=== PATIENT | female | born 1940 | race Caucasian/White ===

== ENCOUNTER 2017-05-07 07:46 | Emergency (ER) | payer MEDICARE ==
[~2017-05-07] VITALS: Ht 170.2 cm; Wt 63.5 kg
--- NOTE | 2017-05-07 08:09 | Emergency Room Report ---
History of Present Illness Time Seen by MD Foster Presenting Problem in Triage Pt arrived:Wheelchair Presenting Problem:PATIENT REPORTS SHE WAS ROLLING OVER TO GET UP AND FELL OUT OF THE BED. SMALL LAC NOTED TO LEFT FA. PATIENT REPORTS SHE'S ON COUMADIN. 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 N Clinical Suspician of Infection? N Mental Status: 1 - Regular (Normal Baseline) Sepsis Risk:Low Sepsis Risk Have you (or family members/close friends) recently traveled outside the [place]? N If Yes, where/when: Have you had exposure to infectious disease within the past month? TB? Other? Specify: Source patient, RN notes reviewed Exam Limitations no limitations Comment Pt was rolling over to get out of bed and instead, Fell out of bed. No LOC but small laceration on left forearm. She in on coumadin. n She also has about a 3 cm cut on the tip of her right middle fingertip Cardiac Chest Pain Chest pain indicative of cardiac No Timing/Duration this morning ALLERGIES Coded Allergies: No Known Allergies (05/07/17) Home Medications Reported Medications WARFARIN SOD (Warfarin 1MG) 1 MG PO SEE COMMENT WARFARIN SOD (Warfarin 2.5MG) 2 MG PO SEE COMMENTS Phenytoin (Dilantin) 50 MG PO ZANA FLOOD,S,S #30 30 Days PHENYTOIN SODIUM EXTENDED (Dilantin) 100 MG PO BID #90 30 Days Atorvastatin Calcium 40 MG PO QHS #30 30 Days History Medical History General CAD? No Angina: No MD: No Hypertension? No Hyperlipidemia? Yes CHF? No DVT? No PE? No COPD? No Asthma? No Anemia? No GERD? No Gastric ulcers? No GI Bleed? No Hernia? No Thyroid Problems? No Hypothyroidism? No CVA? Yes Seizures? Yes Diabetes? No Renal Insuffiency? No End Stage Renal Disease? No UTI? Yes Stones? No BPH? No GB Disease: No Nephritic Syndrome? No Asplenia? No Hepatitis? No Sickle Cell Disease? No Arthritis? Yes Migraines? No Cataracts? No Glaucoma? No MRSA? No HIV? No TB? No Anxiety? No Depression? No Cancer? No More? Yes Additional hx: ANEURYSM Immunization Hx DT/Tetanus 1-4 YRS Flu THIS YR Pneumonia 1-4 YRS Surgical Hx Previous Surgery?Y ANEURYSM PARTIAL HYSTERECTOMY RIGHT HIP C SECTION Family History Family Hx Diabetes No CAD Yes Hypertension Yes Hyperlipidemia No Cancer Yes TB No Social History Smoking Hx Smoker: Current Every Day Smoker Tobacco: Yes Type Cigarettes Packs/day 1 1/2 - 2 Packs Alcohol Alcohol: No Review of Systems All Other Systems Reviewed and Negative Constitutional see HPI Skin see HPI Physical Exam Vital Signs Vital Signs Date Time Temp Pulse Resp B/P Pulse O2 O2 Flow FiO2 Ox Delivery Rate 05/07 0751 97.7 87 20 178/78 96 General Appearance normal appearance, WD/WN, no apparent distress Respiratory Status No: respiratory distress. 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 No Results/Orders Current Medication Orders Sig/Shanelle Start time Last Medication Dose Route Stop Time Status Admin Diphtheria/Pertussis/ 0.5 ML ONCE ONE 05/07 845 DC Tetanus Vacc IM 05/07 846 Multi-Ingredient 0 .STK-MED ONE 05/07 845 DC Ointment TP Diphtheria/Pertussis/ 0 .STK-MED ONE 05/07 0818 DC Tetanus Vacc IM Lidocaine HCl 10 ML ONCE ONE 05/07 815 DC 05/07 SC 05/07 08 0832 Lidocaine HCl 0 .STK-MED ONE 05/07 08 DC .ROUTE Orders Procedure Date/time Status PROCEDURE TRAY SET UP 05/07 810 Active PREPARE CONSENT 05/07 810 Active Procedures Laceration/Wound Repair Laceration/Wound Repair Risks/benefits discussed with pt/guardian? Yes Tetanus status not up to date, given Tdap in the ED Wound Location finger(s), forearm Wound Length (cm) 5 Wound's Depth, Shape sucutaneous tissue Wound Explored clean Risk of retained FB explained to pt/guardian? No Irrigated w/ Saline (ccs) 25 Wound Prep Hibiclens, Saline Anesthesia 1% Lidocaine Volume Anesthetic (ccs) 5 Wound Debrided none Wound Repaired With sutures Suture Size/Type 5:0, Ethilon Layer Closure No Total Number Sutures 14 Sterile Dressing Applied Yes Splint Applied No Departure Departure Time of Disposition 844 Disposition DC Home or Self Care(routine) Clinical Impression Primary Impression: Finger laceration Qualifiers: Encounter type: initial encounter Finger: middle finger Damage to nail status: without damage Foreign body presence: without foreign body Laterality: right Qualified Code: S61.212A - Laceration without foreign body of right middle finger without damage to nail, initial encounter Secondary Impressions: Forearm laceration Qualifiers: Encounter type: initial encounter Laterality: left Qualified Code: S51.812A - Laceration without foreign body of left forearm, initial encounter Condition STABLE Referrals [facility] (Family): 1 Week-Call Office Patient Instructions DI for Laceration Repair, How to Care for a Laceration After Repair, Laceration Repair Additional Instructions Keep stitches dry for 2 days. Change dressing daily and use bactroban ointment to redress. Have stitches removed in 9 to 10 days Discharge Counseling Counseled pt/family regarding diagnosis, test results, medications/RX, home care, follow up needs Prescriptions Current Visit Scripts MUPIROCIN 2% (Bactroban Oint) 0 GM TP DAILY #1 TUBE ED Critical Care Critical Care No If Critical Care minutes are documented, the time involved in the performance of seperately reportable procedures was not counted toward critical care time documented. I directly delivered medical care to this critically ill and/or injured patient. Timely evaluation and treatment was necessary to address the significant organ system(s) dysfunction present in this patient. at 0848
[2017-05-07 09:02] VITALS: BP 170/72
--- OUTSIDE RECORDS SUMMARY | 2017-05-17 21:08 | External Medical Summary Rpt ---
Author Author , HEATHER ROMERO Address Unknown Phone International Immunization Name Date Rout CVX Reac Dose Comm Prov Is Faci e tion ent ider Refu lity Give sed n Infl 11-0 135 999 Hist D203 No D203 uenz 8-20 oric 45 45 a, 16 al High Info rmat Dose ion - Sour ce Unsp ecif ied
--- OUTSIDE RECORDS SUMMARY | 2017-05-17 21:08 | External Medical Summary Rpt ---
Author Author , HEATHER ROMERO Address Unknown Phone [email or web address] Care Team Providers Care Software Manager Name Role Phone [facility] Unavailable Unavailable CARE, [facility] Unavailable Unavailable CARE, [facility] Unavailable Unavailable CARE OF, [facility] OF Purpose Continuity of Care Document - 03-09-2017 through 2016 Problems Code Diagnosis DOS Provider Status [id number] HEMIPLEGIA 05-01-2017 [facility] INFARCT AFF RT DOM SIDE Procedures Procedure DOS Code Location Performer Comment HOME CARE S[facility]LD[facility] ELD[facility] CARE CARE CARE CLIENT PER 15 MIN HOME CARE [facility] 7 [facility] CARE CARE CLIENT PER 15 MIN HOME CARE [facility] 7 [facility] ELD[facility] CARE CARE CARE CLIENT PER 15 MIN HOME CARE S[facility] 7 [facility] ELD[facility] CARE CARE CARE CLIENT PER 15 MIN HOME CARE S[facility] 7 [facility] ELD[facility] CARE CARE CARE CLIENT PER 15 MIN HOME CARE S[facility] 7 [facility] ELD[facility] CARE CARE CARE CLIENT PER 15 MIN HOME CARE S[facility] 7 [facility] ELD[facility] CARE CARE CARE CLIENT PER 15 MIN HOME CARE S[facility] 7 [facility]LD[facility] CARE CARE CARE CLIENT PER 15 MIN HOME [facility]ARE S[facility] 7 [facility]LD[facility] CARE CARE CARE CLIENT PER 15 MIN HOME CARE S[facility] 7 [facility]LD[facility] CARE CARE CARE CLIENT PER 15 MIN HOME [facility]ARE S[facility] 7 [facility]LD[facility] CARE CARE CARE CLIENT PER 15 MIN HOME [facility]ARE S[facility] 7 [facility]LD[facility] CARE CARE CARE CLIENT PER 15 MIN HOME CARE S[facility] 7 [facility] HOME ELDER ELDER CARE CARE CARE CLIENT PER 15 MIN HOME CARE S[facility] 7 [facility] HOME ELDER ELDER CARE CARE CARE CLIENT PER 15 MIN HOME CARE S[facility] 7 [facility] HOME ELDER ELDER CARE CARE CARE CLIENT PER 15 MIN HOME CARE S[facility] 7 [facility] HOME ELDER ELDER CARE CARE CARE CLIENT PER 15 MIN HOME CARE S[facility] 7 [facility] HOME ELDER ELDER CARE CARE CARE CLIENT PER 15 MIN HOME CARE S[facility] 7 [facility] HOME ELDER ELDER CARE CARE CARE CLIENT PER 15 MIN HOME CARE S[facility] 7 [facility] HOME ELDER ELDER CARE CARE CARE CLIENT PER 15 MIN HOME CARE S[facility] 7 [facility] HOME ELDER ELDER CARE CARE CARE CLIENT PER 15 MIN HOME CARE S[facility] 7 [facility] HOME ELDER ELDER CARE CARE CARE CLIENT PER 15 MIN HOME CARE S[facility] 7 [facility] HOME ELDER ELDER CARE CARE CARE CLIENT PER 15 MIN HOME CARE S[facility] 7 [facility] HOME ELDER ELDER CARE CARE CARE CLIENT PER 15 MIN HOME CARE S[facility] 7 [facility] HOME ELDER ELDER CARE CARE CARE CLIENT PER 15 MIN HOME CARE S[facility] 7 [facility] HOME ELDER ELDER CARE CARE CARE CLIENT PER 15 MIN HOME CARE S5[facility] 7 [facility] HOME ELDER ELDER CARE CARE CARE CLIENT PER 15 MIN HOME CARE S5108 [facility] 7 [facility] HOME ELDER ELDER CARE CARE CARE CLIENT PER 15 MIN HOME CARE S5[facility] 7 [facility] HOME ELDER ELDER CARE CARE CARE CLIENT PER 15 MIN HOME CARE S5[facility] 7 [facility] HOME ELDER ELDER CARE CARE CARE CLIENT PER 15 MIN HOME CARE S5[facility] 7 [facility] HOME ELDER ELDER CARE CARE CARE CLIENT PER 15 MIN HOME CARE S5108 [facility] 7 [facility] HOME ELDER ELDER CARE CARE CARE CLIENT PER 15 MIN HOME CARE S5108 [facility] 7 [facility] HOME ELDER ELDER CARE CARE CARE CLIENT PER 15 MIN HOME CARE S5108 [facility] 7 [facility]LD[facility] ELDER CARE CARE CARE CLIENT PER 15 MIN HOME CARE S5[facility] 7 [facility]LD[facility] ELDER CARE CARE CARE CLIENT PER 15 MIN HOME CARE S5[facility] 7 [facility] HOME ELDER ELDER CARE CARE CARE CLIENT PER 15 MIN HOME CARE S5108 [facility] 7 [facility]LD[facility] ELDER CARE CARE CARE CLIENT PER 15 MIN HOME [facility]ARE S5[facility] 7 [facility]LD[facility] ELDER CARE CARE CARE CLIENT PER 15 MIN HOME [facility]ARE S5[facility] 7 [facility]LD[facility] ELDER CARE CARE CARE CLIENT PER 15 MIN HOME CARE S5[facility] 7 [facility]LD[facility] ELDER CARE CARE CARE CLIENT PER 15 MIN HOME CARE S5[facility] 7 [facility] ELDER ELDER CARE CARE CARE CLIENT PER 15 MIN HOME CARE S5[facility] 7 [facility] HOME ELDER ELDER CARE CARE CARE CLIENT PER 15 MIN Encounters Encounter Start End Date Code Location Performer Type Date HOME [facility], 7 7 TOUCH OTHER HOME CARE OF
--- OUTSIDE RECORDS SUMMARY | 2017-05-17 21:08 | External Medical Summary Rpt ---
Author Author , HEATHER ROMERO Address Unknown Phone [email or web address] Immunization Name Date Rout CVX Reac Dose Comm Prov Is Faci e tion ent ider Refu lity Give sed n Infl 11-0 135 999 Hist D203 No D203 uenz 8-20 oric 45 45 a, 16 al High Info rmat Dose ion - Sour ce Unsp ecif ied
--- OUTSIDE RECORDS SUMMARY | 2017-05-17 21:08 | External Medical Summary Rpt ---
Author Author , HEATHER ROMERO Address Unknown Phone [email or web address] Care Team Providers Care Heat Treat Technician Name Role Phone [facility] Unavailable Unavailable CARE, [facility] CARE [facility] Unavailable Unavailable CARE, [facility] Unavailable Unavailable CARE OF, [facility] C[facility] OF Purpose Continuity of Care Document - 11-25-2012 through 2016 Problems Code Diagnosis DOS Provider Status [id number] HEMIPLEGIA 05-01-2017 [facility] INFAR[facility] AFF RT DOM SIDE Allergies, Adverse Reactions, Alerts Type Allergy to substance Adverse Reaction to Substance Substance Reaction Severity INGREDIENT: NO KNOWN Unknown Unknown - NO KNOWN DRUG ALLERGY Vital Signs 11-25-2012 16:11 Name Value Interpretat Reference Comment ion Range BP 91 mm[Hg] Diastolic BP Systolic 160 mm[Hg] Heart 90 /min Rate/Pulse O2% 95 % Respiratory 18 /min Rate 11-25-2012 15:26 Name Value Interpretat Reference Comment ion Range BP 72 mm[Hg] Diastolic BP Systolic 143 mm[Hg] Heart 90 /min Rate/Pulse O2% 95 % Respiratory 18 /min Rate Procedures Procedure DOS Code Location Performer Comment HOME CARE S[facility] 7 [facility] ELDER CARE CARE CARE CLIENT PER 15 MIN HOME [facility]ARE S5[facility] 7 [facility] ELDER CARE CARE CARE CLIENT PER 15 MIN HOME [facility]ARE S5[facility] 7 [facility] ELDER CARE CARE CARE CLIENT PER 15 MIN HOME CARE S5[facility] 7 [facility] ELDER CARE CARE CARE CLIENT PER 15 MIN HOME CARE S5[facility] 7 [facility] ELDER CARE CARE CARE CLIENT PER 15 MIN HOME CARE S5[facility] 7 [facility] CARE CARE CLIENT PER 15 MIN HOME CARE S5108 [facility] 7 [facility] HOME ELDER ELDER CARE CARE CARE CLIENT PER 15 MIN HOME CARE S[facility] 7 [facility] HOME ELDER ELDER CARE CARE CARE CLIENT PER 15 MIN HOME CARE S[facility] 7 [facility] ELDER ELDER CARE CARE CARE CLIENT PER 15 MIN HOME CARE S5[facility] 7 [facility] ELDER ELDER CARE CARE CARE CLIENT PER 15 MIN HOME CARE S5108 [facility] 7 [facility] ELDER ELDER CARE CARE CARE CLIENT PER 15 MIN HOME CARE S5108 [facility] 7 [facility] ELDER ELDER CARE CARE CARE CLIENT PER 15 MIN HOME CARE S5108 [facility] 7 [facility] ELDER ELDER CARE CARE CARE CLIENT PER 15 MIN HOME CARE S5108 [facility] 7 [facility] ELDER ELDER CARE CARE CARE CLIENT PER 15 MIN HOME CARE S5108 [facility] 7 [facility] ELDER ELDER CARE CARE CARE CLIENT PER 15 MIN HOME CARE S5[facility] 7 [facility] ELDER ELDER CARE CARE CARE CLIENT PER 15 MIN HOME CARE S5108 [facility] 7 [facility] ELDER ELDER CARE CARE CARE CLIENT PER 15 MIN HOME CARE S5[facility] 7 [facility] ELDER ELDER CARE CARE CARE CLIENT PER 15 MIN HOME CARE S5[facility] 7 [facility] ELDER ELDER CARE CARE CARE CLIENT PER 15 MIN HOME CARE S5[facility] 7 [facility] ELDER ELDER CARE CARE CARE CLIENT PER 15 MIN HOME CARE S5[facility] 7 [facility] ELDER ELDER CARE CARE CARE CLIENT PER 15 MIN HOME CARE S5[facility] 7 [facility] ELDER ELDER CARE CARE CARE CLIENT PER 15 MIN HOME CARE S5[facility] 7 [facility] ELDER ELDER CARE CARE CARE CLIENT PER 15 MIN HOME CARE S5108 [facility] 7 [facility] ELDER ELDER CARE CARE CARE CLIENT PER 15 MIN HOME CARE S5108 [facility] 7 [facility] ELDER ELDER CARE CARE CARE CLIENT PER 15 MIN HOME CARE S5[facility] 7 [facility] ELDER ELDER CARE CARE CARE CLIENT PER 15 MIN HOME CARE S5[facility] 7 [facility] ELDER ELDER CARE CARE CARE CLIENT PER 15 MIN HOME CARE S5[facility] 7 [facility] ELDER ELDER CARE CARE CARE CLIENT PER 15 MIN HOME CARE S5[facility] 7 [facility] HOME ELDER ELDER CARE CARE CARE CLIENT PER 15 MIN HOME CARE S5108 [facility] 7 [facility] HOME ELDER ELDER CARE CARE CARE CLIENT PER 15 MIN HOME CARE S5[facility] 7 [facility] HOME ELDER ELDER CARE CARE CARE CLIENT PER 15 MIN HOME CARE S5108 [facility] 7 [facility] HOME ELDER ELDER CARE CARE CARE CLIENT PER 15 MIN HOME CARE S5108 [facility] 7 [facility] HOME ELDER ELDER CARE CARE CARE CLIENT PER 15 MIN HOME CARE S5108 [facility] 7 [facility] HOME ELDER ELDER CARE CARE CARE CLIENT PER 15 MIN HOME CARE S5[facility] 7 [facility] HOME ELDER ELDER CARE CARE CARE CLIENT PER 15 MIN HOME CARE S5108 [facility] 7 [facility] HOME ELDER ELDER CARE CARE CARE CLIENT PER 15 MIN HOME CARE S5108 [facility] 7 [facility] HOME ELDER ELDER CARE CARE CARE CLIENT PER 15 MIN HOME CARE S5108 [facility] 7 [facility] HOME ELDER ELDER CARE CARE CARE CLIENT PER 15 MIN HOME CARE S5108 [facility] 7 [facility] HOME ELDER ELDER CARE CARE CARE CLIENT PER 15 MIN HOME CARE S5108 [facility] 7 [facility] HOME ELDER ELDER CARE CARE CARE CLIENT PER 15 MIN HOME CARE S5108 [facility] 7 [facility] HOME ELDER ELDER CARE CARE CARE CLIENT PER 15 MIN Encounters Encounter Start End Date Code Location Performer Type Date HOME [facility], 7 7 TOUCH OTHER HOME CARE OF Emergency SANTOSH Lockhart MD (ER) 3 15:13 [facility]
--- OUTSIDE RECORDS SUMMARY | 2017-05-17 21:08 | External Medical Summary Rpt ---
Author Author , HEATHER ROMERO Address Unknown Phone [email or web address] Care Team Providers Care Correspondence Clerk Name Role Phone [facility] Unavailable Unavailable CARE, [facility] CARE [facility] Unavailable Unavailable CARE, [facility] Unavailable Unavailable CARE OF, [facility] OF Purpose Continuity of Care Document - 11-25-2012 through 2016 Problems Code Diagnosis DOS Provider Status [id number] HEMIPLEGIA 05-01-2017 [facility] INFARCT AFF RT DOM SIDE Allergies, [...] HOME CARE S5108 [facility] 7 [facility] ELDER CARE CARE CARE CLIENT PER 15 MIN HOME [facility]ARE S5108 [facility] 7 [facility] E[facility] CARE CARE CARE CLIENT PER 15 MIN HOME [facility]ARE S5108 [facility] 7 [facility] E[facility] CARE CARE CARE CLIENT PER 15 MIN HOME CARE S5108 [facility] 7 [facility] E[facility] CARE CARE CARE CLIENT PER 15 MIN HOME [facility]ARE S5108 [facility] 7 [facility] E[facility] CARE CARE CARE CLIENT PER 15 MIN HOME [facility]ARE S5108 [facility] 7 [facility] C[facility] CARE CARE CLIENT PER 15 MIN HOME CARE S5108 [facility] 7 [facility] HOME ELDER ELDER CARE CARE CARE CLIENT PER 15 MIN HOME CARE S5108 [facility] 7 [facility] HOME ELDER ELDER CARE CARE CARE CLIENT PER 15 MIN HOME CARE S5108 [facility] 7 [facility] HOME ELDER ELDER CARE CARE CARE CLIENT PER 15 MIN HOME CARE S5108 [facility] 7 [facility] HOME ELDER ELDER CARE CARE CARE CLIENT PER 15 MIN HOME CARE S5108 [facility] 7 [facility] HOME ELDER ELDER CARE CARE CARE CLIENT PER 15 MIN HOME CARE S5108 [facility] 7 [facility] HOME ELDER ELDER CARE CARE CARE CLIENT PER 15 MIN HOME CARE S5108 [facility] 7 [facility] HOME ELDER ELDER CARE CARE CARE CLIENT PER 15 MIN HOME CARE S5108 [facility] 7 [facility] HOME ELDER ELDER CARE CARE CARE CLIENT PER 15 MIN HOME CARE S5108 [facility] 7 [facility] HOME ELDER ELDER CARE CARE CARE CLIENT PER 15 MIN HOME CARE S5108 [facility] 7 [facility] HOME ELDER ELDER CARE CARE CARE CLIENT PER 15 MIN HOME CARE S5108 [facility] 7 [facility] HOME ELDER ELDER CARE CARE CARE CLIENT PER 15 MIN HOME CARE S5108 [facility] 7 [facility] HOME ELDER ELDER CARE CARE CARE CLIENT PER 15 MIN HOME CARE S5108 [facility] 7 [facility] HOME ELDER ELDER CARE CARE CARE CLIENT PER 15 MIN HOME CARE S5108 [facility] 7 [facility] HOME ELDER ELDER CARE CARE CARE CLIENT PER 15 MIN HOME CARE S5108 [facility] 7 [facility] HOME ELDER ELDER CARE CARE CARE CLIENT PER 15 MIN HOME CARE S5108 [facility] 7 [facility] HOME ELDER ELDER CARE CARE CARE CLIENT PER 15 MIN HOME CARE S5108 [facility] 7 [facility] HOME ELDER ELDER CARE CARE CARE CLIENT PER 15 MIN HOME CARE S5108 [facility] 7 [facility] HOME ELDER ELDER CARE CARE CARE CLIENT PER 15 MIN HOME CARE S5108 [facility] 7 [facility] HOME ELDER ELDER CARE CARE CARE CLIENT PER 15 MIN HOME CARE S5108 [facility] 7 [facility] HOME ELDER ELDER CARE CARE CARE CLIENT PER 15 MIN HOME CARE S5108 [facility] 7 [facility] HOME ELDER ELDER CARE CARE CARE CLIENT PER 15 MIN HOME CARE S5108 [facility] 7 [facility] HOME ELDER ELDER CARE CARE CARE CLIENT PER 15 MIN HOME CARE S5108 [facility] 7 [facility] HOME ELDER ELDER CARE CARE CARE CLIENT PER 15 MIN HOME CARE S5108 [facility] 7 [facility] HOME ELDER ELDER CARE CARE CARE CLIENT PER 15 MIN HOME CARE S5108 [facility] 7 [facility] HOME ELDER ELDER CARE CARE CARE CLIENT PER 15 MIN HOME CARE S5108 [facility] 7 [facility] HOME ELDER ELDER CARE CARE CARE CLIENT PER 15 MIN HOME CARE S5108 [facility] 7 [facility] HOME ELDER ELDER CARE CARE CARE CLIENT PER 15 MIN HOME CARE S5108 [facility] 7 [facility] HOME ELDER ELDER CARE CARE CARE CLIENT PER 15 MIN HOME CARE S5108 [facility] 7 [facility] HOME ELDER ELDER CARE CARE CARE CLIENT PER 15 MIN HOME CARE S5108 [facility] 7 [facility] HOME ELDER ELDER CARE CARE CARE CLIENT PER 15 MIN HOME CARE S5108 [facility] 7 [facility] HOME ELDER ELDER CARE CARE CARE CLIENT PER 15 MIN HOME CARE S5108 [facility] 7 [facility] HOME ELDER ELDER CARE CARE CARE CLIENT PER 15 MIN HOME CARE S5108 [facility] 7 [facility] HOME ELDER ELDER CARE CARE CARE CLIENT PER 15 MIN HOME CARE S5108 [facility] 7 [facility] HOME ELDER ELDER CARE CARE CARE CLIENT PER 15 MIN HOME CARE S5108 [facility] 7 [facility] HOME ELDER ELDER CARE CARE CARE CLIENT PER 15 MIN Encounters Encounter Start End Date Code Location Performer Type Date HOME [facility], 7 7 TOUCH OTHER HOME CARE OF Emergency SANTOSH Lockhart MD (ER) 3 15[facility]
--- OUTSIDE RECORDS SUMMARY | 2017-05-17 21:08 | External Medical Summary Rpt ---
Author Author , HEATHER ROMERO Address Unknown Phone [email or web address] Care Team Providers Care Sales Service Manager Name Role Phone [facility] Unavailable Unavailable CARE, [facility] CARE [facility] Unavailable Unavailable CARE, [facility] Unavailable Unavailable CARE OF, [facility] OF Purpose Continuity of Care Document - 03-09-2017 through 2016 Problems Code Diagnosis DOS Provider Status [id number] HEMIPLEGIA 05-01-2017 [facility] INFARCT AFF RT DOM SIDE Procedures Procedure DOS Code Location Performer Comment HOME CARE S5108 [facility] 7 [facility] ELDER ELDER CARE CARE CARE CLIENT PER 15 MIN HOME CARE S5108 [facility] 7 [facility] ELDER ELDER CARE CARE CARE CLIENT PER 15 MIN HOME CARE S5108 [facility] 7 [facility] ELDER CARE CARE CARE CLIENT PER 15 MIN HOME CARE S5108 [facility] 7 [facility] ELDER CARE CARE CARE CLIENT PER 15 MIN HOME CARE S5108 [facility] 7 [facility]ER ELDER CARE CARE CARE CLIENT PER 15 MIN HOME CARE S5108 [facility] 7 [facility] ELDER CARE CARE CARE CLIENT PER 15 MIN HOME CARE S5108 [facility] 7 [facility] ELDER CARE CARE CARE CLIENT PER 15 MIN HOME CARE S5108 [facility] 7 [facility] ELDER CARE CARE CARE CLIENT PER 15 MIN HOME CARE S5108 [facility] 7 [facility] ELDER CARE CARE CARE CLIENT PER 15 MIN HOME [facility]ARE S5108 [facility] 7 [facility] ELDER CARE CARE CARE CLIENT PER 15 MIN HOME [facility]ARE S5108 [facility] 7 [facility] ELDER CARE CARE CARE CLIENT PER 15 MIN HOME CARE S5108 [facility] 7 [facility] ELD[facility] CARE CARE CARE CLIENT PER 15 MIN HOME CARE S5108 [facility] 7 [facility] HOME ELDER ELDER CARE CARE CARE CLIENT PER 15 MIN HOME CARE S5108 [facility] 7 [facility] HOME ELDER ELDER CARE CARE CARE CLIENT PER 15 MIN HOME CARE S5108 [facility] 7 [facility] HOME ELDER ELDER CARE CARE CARE CLIENT PER 15 MIN HOME CARE S5108 [facility] 7 [facility] ELDER ELDER CARE CARE CARE CLIENT PER 15 MIN HOME CARE S5108 [facility] 7 [facility] ELDER ELDER CARE CARE CARE CLIENT PER 15 MIN HOME CARE S5108 [facility] 7 [facility] ELDER ELDER CARE CARE CARE CLIENT PER 15 MIN HOME CARE S5108 [facility] 7 [facility] HOME ELDER ELDER CARE CARE CARE CLIENT PER 15 MIN HOME CARE S5108 [facility] 7 [facility] ELDER ELDER CARE CARE CARE CLIENT PER 15 MIN HOME CARE S5108 [facility] 7 [facility] ELDER ELDER CARE CARE CARE CLIENT PER 15 MIN HOME CARE S5108 [facility] 7 [facility] ELDER ELDER CARE CARE CARE CLIENT PER 15 MIN HOME CARE S5108 [facility] 7 [facility] ELDER ELDER CARE CARE CARE CLIENT PER 15 MIN HOME CARE S5108 [facility] 7 [facility] ELDER ELDER CARE CARE CARE CLIENT PER 15 MIN HOME CARE S5108 [facility] 7 [facility] ELDER ELDER CARE CARE CARE CLIENT PER 15 MIN HOME CARE S5108 [facility] 7 [facility] ELDER ELDER CARE CARE CARE CLIENT PER 15 MIN HOME CARE S5108 [facility] 7 [facility] ELDER ELDER CARE CARE CARE CLIENT PER 15 MIN HOME CARE S5108 [facility] 7 [facility] HOME ELDER ELDER CARE CARE CARE CLIENT PER 15 MIN HOME CARE S5108 EL[facility] 7 [facility] HOME ELDER ELDER CARE CARE CARE CLIENT PER 15 MIN HOME CARE S5108 [facility] 7 [facility] ELDER ELDER CARE CARE CARE CLIENT PER 15 MIN HOME CARE S5108 [facility] 7 [facility] ELDER ELDER CARE CARE CARE CLIENT PER 15 MIN HOME CARE S5108 [facility] 7 [facility] HOME ELDER ELDER CARE CARE CARE CLIENT PER 15 MIN HOME CARE S5108 [facility] 7 [facility] ELD[facility] CARE CARE CARE CLIENT PER 15 MIN HOME CARE S5108 [facility] 7 [facility] ELD[facility] CARE CARE CARE CLIENT PER 15 MIN HOME CARE S5108 [facility] 7 [facility] HOME ELDER ELDER CARE CARE CARE CLIENT PER 15 MIN HOME CARE S5108 [facility] 7 [facility] ELD[facility] CARE CARE CARE CLIENT PER 15 MIN HOME CARE S5108 [facility] 7 [facility] ELD[facility] CARE CARE CARE CLIENT PER 15 MIN HOME CARE S5108 [facility] 7 [facility] ELD[facility] CARE CARE CARE CLIENT PER 15 MIN HOME CARE S5108 [facility] 7 [facility] ELD[facility] CARE CARE CARE CLIENT PER 15 MIN HOME CARE S5108 [facility] 7 [facility] ELD[facility] ELDER CARE CARE CARE CLIENT PER 15 MIN HOME CARE S5108 [facility] 7 [facility] HOME ELDER ELDER CARE CARE CARE CLIENT PER 15 MIN Encounters Encounter Start End Date Code Location Performer Type Date HOME [facility]AL [facility], 7 7 TOUCH OTHER HOME CARE OF
--- OUTSIDE RECORDS SUMMARY | 2017-05-17 21:09 | External Medical Summary Rpt ---
Author Author HEATHER Putnam, HEATHER Putnam Organization [employer] Address Unknown Phone Unavailable
== END 2017-05-07 09:07 | disposition home or self-care (01) ==
LOC: ER 07:46
PROC: 0HQGXZZ Repair Left Hand Skin, External Approach (ICD-10-PCS; principal; 2017-05-07)
PROC: 0HQEXZZ Repair Left Lower Arm Skin, External Approach (ICD-10-PCS; 2017-05-07)
DX: S61.212A Laceration without foreign body of right middle finger without damage to nail, initial encounter (principal); S51.812A Laceration without foreign body of left forearm, initial encounter; Z23 Encounter for immunization; F17.210 Nicotine dependence, cigarettes, uncomplicated; R56.9 Unspecified convulsions; Z79.01 Long term (current) use of anticoagulants; E78.5 Hyperlipidemia, unspecified